=== PATIENT | male | born 1965 | race Caucasian/White ===

== ENCOUNTER 2022-09-20 14:17 | Outpatient (OUT) | payer BC, SELFPAY ==
--- NOTE | 2022-09-20 14:26 | ECG_ITS ---
The 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
--- NOTE | 2022-09-20 15:05 | PM.PRESUREVA ---
History of Present Illness History of Present Illness Chief complaint: hallux valgus Narrative: Patient presents for preadmission testing. The patient reports a long history of left foot pain. He states he had left ankle surgery after a fracture approximately ten years ago. He states his pain is worse with weightbearing and certain footwear. He is not currently taking any medications to help with his discomfort. He denies numbness, tingling, weakness, or any other complaints. Review of Systems ROS Narrative REVIEW OF SYSTEMS: Negative except as stated in HPI, ten or more systems reviewed. Constitutional: No fever , chills, weakness ENT: No sore throat or epistaxis Cardiovascular: No edema, chest pain, palpitations, or activity intolerance Respiratory: No shortness of breath, cough, or wheezing Gastrointestinal: No abdominal pain, constipation, diarrhea, or vomiting Genitourinary: No dysuria or hematuria Neurological: No numbness, tingling, weakness, or headache Psychiatric: No mood changes PFSH PFS Medical History (Updated 09/20/22 @ 15:11 by Roseanne Driscoll NP) Surgical History (Updated 09/20/22 @ 14:45 by Roseanne Driscoll NP) Family History (Updated 09/20/22 @ 14:48 by Roseanne Driscoll NP) Other Family history of myocardial infarction Social History (Updated 09/20/22 @ 14:44 by Roseanne Driscoll NP) Within the past year, how often did you have a drink containing alcohol: monthly or less Smoking status: Former smoker Non-prescribed substance use: denies use Previous occupational history: Receptionist Secretary Highest level of school completed/degree received: high school graduate Meds Home Medications and Allergies Allergies Allergy/AdvReac Type Severity Reaction Status Date / Time Penicillins Allergy itching Verified 09/20/22 14:43 Sulfa (Sulfonamide Allergy itching Verified 09/20/22 14:43 Antibiotics) Exam Narrative Exam Narrative: Constitutional: Awake, alert, comfortable, well-appearing, nontoxic, interactive, vital signs as charted Head: Normocephalic, atraumatic Neck: Supple, normal appearance, normal range of motion, no meningeal signs, no lymphadenopathy Respiratory: No respiratory distress, breath sounds clear Cardiovascular: Regular rate and rhythm, strong and regular heart tones Musculoskeletal: Normal gait, no swelling or edema, Obvious hallux valgus deformity left foot with tenderness overlying the 1st MTP joint, limited range of motion, good capillary refill, sensation intact Skin: No rashes or induration, no lesions, only visible skin inspected Neuro: No neurological deficits, normal sensation Psychiatric: Oriented ?3, normal affect Assessment and Plan Assessment and Plan (1) Hallux valgus (acquired), left foot: (2) Hallux rigidus, left foot: Plan Left 1st metatarsal phalangeal joint fusion with bone graft as needed scheduled with Dr. Boone 10/02/2022.
== END 2022-09-20 14:18 | disposition home or self-care (01) ==
LOC: PST 14:22
PROVIDERS: PCP Family Medicine; Visit Provider Podiatrist Foot & Ankle Surgery
DX: Z01.810 Encounter for preprocedural cardiovascular examination (principal); Z01.818 Encounter for other preprocedural examination; M20.12 Hallux valgus (acquired), left foot; M20.22 Hallux rigidus, left foot
CPT/HCPCS: 93005; G0463

== ENCOUNTER 2022-10-02 06:31 | Day surgery (SDC) | payer BC, SELFPAY ==
[2022-09-20 15:01] VITALS: BP 106/75; PULSE 93; RESP 20; TEMP 36.5; O2SAT 95; BMI 40.5
[2022-10-02] VITALS (13 sets, daily range): BP systolic 110–150; BP diastolic 67–102; PULSE 63–96; RESP 14–20; TEMP 36.7–37.1; O2SAT 92–96; BMI 40.5
--- NOTE | 2022-10-02 | XR_ITS ---
The [address] [address] Patient Name: VIVIENNE BINGHAM MRN: [id number] date: 1965 Sex: M Assigned Patient Location: [facility] Current Patient Location: [facility] Accession/Order Number: [id number] Exam Date: 10/02/2022 07:35 Report Date: 10/02/2022 11:19 At the request of: ELHAM KINNEY Procedure: XR foot LT 2V PROCEDURE: XR foot LT 2V HISTORY: left foot pain COMPARISON: None. FINDINGS: BONES:Multiple intraoperative spot fluoroscopic images demonstrates bunionectomy and mechanical fusion of the first metatarsophalangeal joint via dorsal plate and screws. Improved alignment. SOFT TISSUES:Expected intraoperative findings. EFFUSION:None visible. OTHER: Negative. XR/XR foot LT 2V IMPRESSION: 1. Left bunionectomy. 2. Mechanical fusion of the first metatarsophalangeal joint. Electronically authenticated by: VINCENT CHAPMAN Date: 10/02/2022 11:19
[2022-10-02 07:05] LABS: Glucometer 99 mg/dL (74-106)
[2022-10-02] MEDS: LACTATED RINGER'S SOLUTION 1,000 ML 50 ML IV (07:13)
[2022-10-02] MEDS: CLINDAMYCIN PHOSPHATE/D5W 900 MG/50 ML PIGGYBACK 100 MG IV (07:41)
[2022-10-02] MEDS: BUPIVACAINE HCL 0.25% PF 25 MG/10 ML VIAL INJ (08:02)
[2022-10-02] MEDS: LACTATED RINGER'S SOLUTION 1,000 ML 1000 ML IV ×2 (08:38→09:57)
--- NOTE | 2022-10-02 09:32 | PM.ORONB ---
Brief Operative Note Date of procedure: 10/02/22 Pre-op diagnosis: left hallux valgus, hallux rigidus Post-op diagnosis: same as pre-op Procedure: PROCEDURE(S) PERFORMED: 1. First metarsal phalangeal joint fusion 2. Application of short leg splint 3. Intraoperative fluoroscopy examination *All procedures were performed on the __LEFT__ foot INTRAOPERATIVE FINDINGS: PROCEDURE IN DETAIL: Patient was identified in pre op and consent was reviewed. Correct side and site were identified and marked. Pre-op antibiotics were started. Patient was brought to OR suite and place on table in a supine position. General anesthesia was administered. A tourniquet was applied. Operative extremity was prepped and draped in usual sterile fashion. Formal time-out was performed and the foot/ankle were exsanguinated and tourniquet inflated. Incision created over dorsal aspect of the 1st MPJ. Bleeders coagulated. EHL protected throughout the procedure. Capsulotomy performed and McGlammry elevator inserted into 1st MPJ. Guide Pin place in 1st metatarsal head. Conical reamers used on 1st metatarsal head to remove cartilage and subchondral bone. Guide pin removed. Conical reamers used on proximal phalanx in a similar manner. 2.0 mm drill used to on each side of the joint. The site was irrigated. 1 cc of sparc bone allograft was then packed into the fusion site. A stab incision was placed on the medial aspect of the hallux and blunt dissection down to the proximal phalanx base was performed. A guide wire was then used to pin the MPJ in a rectus position under fluoroscopic guidance. Position was checked both on the table and under fluoroscopy. A saw was used to contour the dorsal aspect of the 1st metatarsal and proximal phalanx to accommodate plate fixation. A 3.[address] was place over the fusion site and temporarily fixed. Then company pilot holes were drilled for locking 3.5 mm screws which were measured and placed according to the manufactor's standard directions. Again position was checked under fluoroscopy as well as on the table. Temporary fixation was removed and additional screws were placed. fluoroscopy revealed that the joint had distracted therefore the distal screws in the plate were removed and the joint was relocated and re-pinned. The distal two phalanx screws were then predrilled and placed accordingly while the proximal most hole was left open due to concern of it being placed into the joint. A 3.5 mm cannulated headed screw was inserted over the previously placed guide wire accordingly. Again position of the great toe and hardware placement were checked on the table and under fluoroscopy. a sagittal saw was used to remove the medial eminence of the 1st metatarsal then an additional guidewire was placed from the lateral base of the proximal phalanx across the joint and through a percutaneous incision medial to the distal 1st metatarsal. The wire was then retrograded to the lateral cortex of the phalanx. Then an additional 3.5 mm screw was placed from the medial aspect of the 1st metatarsal head spanning the joint for additional rotational stability. The surgical site was irrigated with copious amounts of sterile saline. The incision was then closed in layers. The tourniquet was deflated and a prompt hyperemic response was noted. A dry sterile dressing consisting of Xeroform on the incisions followed by 4 x 4 gauze, ABDs, and Kerlix were applied. Multiple layers of cast padding were then applied to ensure all bony prominences were well-padded. A plaster posterior splint was then applied which was held in place by Ernesto wraps. Capillary refill time to all digits was evaluated and had appropriate response. 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 he presents me relating to chronic and worsening left foot pain which is affecting activities of daily living as well as work. Radiographically and on clinical examination patient had moderate to severe bunion deformity with existing arthritis of the 1st metatarsal phalangeal joint. Due to failure to respond to nonsurgical care he wished to proceed with surgical treatment and I recommended 1st MPJ fusion. I outlined the potential risks and benefits of the procedure and consent was obtained.
--- NOTE | 2022-10-02 10:28 | XR_ITS ---
The [address] [address] Patient Name: VIVIENNE BINGHAM MRN: [id number] date: 1965 Sex: M Assigned Patient Location: [facility] Current Patient Location: [facility] Accession/Order Number: [id number] Exam Date: 10/02/2022 10:20 Report Date: 10/02/2022 11:18 At the request of: MADELYN AMATO Procedure: XR foot LT min 3V PROCEDURE: XR foot LT min 3V HISTORY: Postop XR PACU COMPARISON: XR foot left 10/02/2022 8:40 AM FINDINGS: BONES:Bunionectomy and mechanical fusion of the first metatarsophalangeal joint via dorsal plate and screws. SOFT TISSUES:Expected postoperative findings. Images were obtained through cast material. EFFUSION:None visible. OTHER: Negative. XR/XR foot LT min 3V IMPRESSION: 1. Mechanical fusion of the first metatarsophalangeal joint and bunionectomy. Electronically authenticated by: VINCENT CHAPMAN Date: 10/02/2022 11:18
[2022-10-02 10:57] LABS: Glucometer 136 mg/dL (74-106)
== END 2022-10-02 13:00 | disposition home or self-care (01) ==
PROVIDERS: PCP Family Medicine; Visit Provider Podiatrist Foot & Ankle Surgery
PROC: (CPT 28750; principal; 2022-10-02 07:30)
DX: M20.12 Hallux valgus (acquired), left foot (principal); M20.22 Hallux rigidus, left foot; Z87.81 Personal history of (healed) traumatic fracture; M19.172 Post-traumatic osteoarthritis, left ankle and foot; Z87.891 Personal history of nicotine dependence
CPT/HCPCS: 28750; 36415; 73620; 73630; 76000; 82948; C1713; J2704

== ENCOUNTER 2022-10-24 08:52 | Outpatient (OUT) | payer BC, SELFPAY ==
--- NOTE | 2022-10-24 | XR_ITS ---
The [address] [address] Patient Name: VIVIENNE BINGHAM MRN: [id number] date: 1965 Sex: M Assigned Patient Location: [facility] Current Patient Location: [facility] Accession/Order Number: [id number] Exam Date: 10/24/2022 09:09 Report Date: 10/24/2022 09:44 At the request of: ELHAM KINNEY Procedure: XR foot LT min 3V PROCEDURE: XR foot LT min 3V DATE: 10/24/2022 8:09 AM CDT COMPARISONS: 10/02/2022 CLINICAL INDICATION: LEFT FOOT PAIN FINDINGS: There is no evidence of fractures or other acute osseous abnormalities. There is fusion plate dorsal aspect of the first metatarsal phalangeal joint. The fusion plate is fixed by screws. There are also 2 oblique screws across the joint space. The hardware all appears to be intact when compared to previous exam. The osseous structures remain in good alignment, stable from previous exam. There is evidence of mild midfoot degenerative changes. Lateral view shows moderate tibiotalar degenerative change and slight subtalar degenerative change. There is evidence of postop changes of the distal tibia extending off the proximal aspect of the images. There is 5 mm area of sclerosis of the second mid phalanx likely of no clinical significance. This probably is a bone island. XR/XR foot LT min 3V IMPRESSION: Postop fusion first metatarsal phalangeal joint, stable in appearance from 10/02/2022 Electronically authenticated by: JED SIDDIQI Date: 10/24/2022 09:44
== END 2022-10-24 08:53 | disposition home or self-care (01) ==
LOC: RAD 08:52
PROVIDERS: PCP Family Medicine; Visit Provider Podiatrist Foot & Ankle Surgery
DX: M20.22 Hallux rigidus, left foot (principal)
CPT/HCPCS: 73630

== ENCOUNTER 2022-11-15 14:25 | Outpatient (OUT) | payer BC, SELFPAY ==
--- NOTE | 2022-11-15 | XR_ITS ---
The [address] [address] Patient Name: VIVIENNE BINGHAM MRN: [id number] date: 1965 Sex: M Assigned Patient Location: [facility] Current Patient Location: [facility] Accession/Order Number: [id number] Exam Date: 11/15/2022 10:50 Report Date: 11/15/2022 13:47 At the request of: ELHAM KINNEY Procedure: XR foot LT min 3V STUDY: XR foot LT min 3V, [id number] HISTORY: LEFT FOOT PAIN COMPARISON: Left foot x-rays 10/24/2022. FINDINGS: Left first metatarsophalangeal joint arthrodesis hardware is intact and similar alignment. No significant bony bridging across the first MTP joint space. Healed fracture of the left fifth proximal phalanx. Mild osteophytosis at the first tarsometatarsal joint. Partially visualized distal tibial fixation hardware. Moderate/severe osteoarthritis of the ankle mortise. XR/XR foot LT min 3V IMPRESSION: Similar appearance of the first MTP joint arthrodesis hardware. Electronically authenticated by: ELÍAS MULLER Date: 11/15/2022 13:47
== END 2022-11-15 14:26 | disposition home or self-care (01) ==
LOC: RAD 14:25
PROVIDERS: PCP Family Medicine; Visit Provider Podiatrist Foot & Ankle Surgery
DX: M20.12 Hallux valgus (acquired), left foot (principal)
CPT/HCPCS: 73630

== ENCOUNTER 2022-12-05 08:43 | Outpatient (OUT) | payer BC, SELFPAY ==
--- NOTE | 2022-12-05 | XR_ITS ---
The [address] [address] Patient Name: VIVIENNE BINGHAM MRN: [id number] date: 1965 Sex: M Assigned Patient Location: [facility] Current Patient Location: [facility] Accession/Order Number: [id number] Exam Date: 12/05/2022 08:58 Report Date: 12/05/2022 20:54 At the request of: ELHAM KINNEY Procedure: XR foot LT min 3V EXAM: XR foot LT min 3V HISTORY: LEFT FOOT PAIN COMPARISON: 11/15/2022 TECHNIQUE: Routine views of the XR foot LT min 3V FINDINGS/ XR/XR foot LT min 3V IMPRESSION: 1. No acute fractures. Normal mineralization. Chronic truncated appearance of the first distal phalanx tip. Chronic fracture deformity of the fifth proximal phalanx. Partially visualized plate and screw fixation of the distal tibia. 2. Unremarkable soft tissues. 3. First MTP arthrodesis. Maintained alignment without evidence for hardware complication. 4. Degenerative changes at the tibiotalar joint. Electronically authenticated by: MISHEL GRACIA Date: 12/05/2022 20:54
== END 2022-12-05 08:44 | disposition home or self-care (01) ==
LOC: RAD 08:43
PROVIDERS: PCP Family Medicine; Visit Provider Podiatrist Foot & Ankle Surgery
DX: M20.22 Hallux rigidus, left foot (principal); Z98.1 Arthrodesis status
CPT/HCPCS: 73630

== ENCOUNTER 2022-12-20 10:25 | Outpatient (OUT) | payer BC, SELFPAY ==
--- NOTE | 2022-12-20 | XR_ITS ---
The [address] [address] Patient Name: VIVIENNE BINGHAM MRN: [id number] date: 1965 Sex: M Assigned Patient Location: [facility] Current Patient Location: [facility] Accession/Order Number: [id number] Exam Date: 12/20/2022 10:36 Report Date: 12/20/2022 13:39 At the request of: ELHAM KINNEY Procedure: XR foot LT min 3V PROCEDURE: XR foot LT min 3V COMPARISON: 12/05/2022 HISTORY: LEFT FOOT PAIN FINDINGS: BONES:Stable first metatarsal phalangeal joint fusion with a dorsal plate and multiple screws. No acute fracture, dislocation or mechanical failure. Remote fixation of the distal tibia with a plate and screws, partially visualized. Stable degenerative changes with joint space narrowing and marginal osteophyte formation most significant at the tibiotalar joint. SOFT TISSUES:Negative. No visible soft tissue swelling. EFFUSION:None visible. OTHER: Negative. XR/XR foot LT min 3V IMPRESSION: Stable postsurgical and degenerative changes Electronically authenticated by: DAYSI SHIELDS Date: 12/20/2022 13:39
== END 2022-12-20 10:26 | disposition home or self-care (01) ==
LOC: RAD 10:25
PROVIDERS: PCP Family Medicine; Visit Provider Podiatrist Foot & Ankle Surgery
DX: M20.12 Hallux valgus (acquired), left foot (principal)
CPT/HCPCS: 73630

== ENCOUNTER 2022-12-22 08:44 | Outpatient (OUT) | payer BC, SELFPAY ==
--- NOTE | 2022-12-22 09:05 | CT_ITS ---
[address] [address] Patient Name: VIVIENNE BINGHAM MRN: [id number] date: 1965 Sex: M Assigned Patient Location: CT Current Patient Location: CT Accession/Order Number: [id number] Exam Date: 12/22/2022 09:20 Report Date: 12/22/2022 12:02 At the request of: ELHAM KINNEY Procedure: CT foot LT wo con EXAMINATION: CT foot LT wo con HISTORY: Hallux Rigidus COMPARISON: No relevant comparison available. TECHNIQUE: Multi-planar CT images were created without IV contrast. Dose reduction techniques were achieved by using automated exposure control and/or adjustment of mA and/or kV according to patient size and/or use of iterative reconstruction technique. FINDINGS: BONES: No acute fracture or dislocation. Moderate diffuse degenerative changes most significant in the hindfoot with joint space narrowing and marginal osteophyte formation. Remote fixation of the distal medial tibia with a plate and screws. Remote healed fracture of the distal fibula. Remote fusion of the first metatarsal-phalangeal joint with a dorsal plate and multiple screws. There is incomplete bony bridging across the fusion site SOFT TISSUES: Diffuse soft tissue swelling EFFUSION: None visible. OTHER: Negative. CT/CT foot LT wo con IMPRESSION: First metatarsal-phalangeal joint fusion with incomplete bony bridging Chronic degenerative, postsurgical and post traumatic changes Electronically authenticated by: DAYSI SHIELDS Date: 12/22/2022 12:02
== END 2022-12-22 08:45 | disposition home or self-care (01) ==
LOC: CT 08:44
PROVIDERS: Visit Provider Podiatrist Foot & Ankle Surgery
DX: M20.22 Hallux rigidus, left foot (principal)
CPT/HCPCS: 73700

== ENCOUNTER 2023-01-12 13:53 | Outpatient (OUT) | payer BC, SELFPAY ==
[2023-01-12 14:26] LABS: Basophils Percent Auto 0.5 % (0.2-2.0); Eosinophils Absolute Auto 0.1 10^3/uL (0.0-0.7); Hematocrit 44.6 % (42.0-54.0); Hemoglobin 15.9 g/dL (14.0-18.0); Immature Granulocytes Abs Auto 0.02 10^3/uL (0.00-0.03); Immature Granulocytes Pct Auto 0.3 % (0.0-0.5); Lymphocytes Absolute Auto 0.9 10^3/uL (1.2-3.8); Lymphocytes Percent Auto 14.6 % (20.5-60.0); Mean Corpuscular HGB Conc 35.7 g/dL (29.9-35.2); Mean Corpuscular Hemoglobin 33.4 pg (25.9-34.0); Mean Corpuscular Volume 93.7 fL (80.0-94.0); Mean Platelet Volume 10.1 fL (9.5-13.5); Monocytes Absolute Auto 0.4 10^3/uL (0.3-0.8); Monocytes Percent Auto 6.4 % (1.7-12.0); Neutrophils Absolute Auto 4.6 10^3/uL (1.4-6.5); Neutrophils Percent Auto 76.2 % (43.0-75.0); Platelet Count 166 10^3/uL (150-450); Red Blood Count 4.76 10^6/uL (4.70-6.10); Red Cell Distribution Width 12.5 % (11.0-15.0); White Blood Count 6.1 10^3/uL (4.0-11.0)
[2023-01-12 14:34] LABS: Estimated Average Glucose 97 mg/dL
[2023-01-12 14:53] LABS: Alanine Aminotransferase 30 U/L (16-63); Albumin Globulin Ratio 1.1; Albumin Level 4.2 g/dL (3.4-5.0); Alkaline Phosphatase 49 U/L (46-116); Anion Gap 15.4; Aspartate Amino Transferase 21 U/L (15-37); Bilirubin Total 0.8 mg/dL (0.2-1.0); Carbon Dioxide 27.5 mmol/L (21.0-32.0); Chloride 102 mmol/L (98-107); Chol HDL Ratio 4.2; Cholesterol 188 mg/dL (<=200); Estimated GFR (African America >60 (>=60); Estimated GFR (Non-African Ame >60 (>=60); Globulin 3.7 g/dL; Glucose 96 mg/dL (74-106); HDL Cholesterol 45 mg/dL (40-60); Potassium 3.9 mmol/L (3.5-5.1); Sodium 141 mmol/L (136-145); Total Protein 7.9 g/dL (6.4-8.2); Triglycerides 200 mg/dL (<=150)
== END 2023-01-12 13:54 | disposition home or self-care (01) ==
LOC: LAB 13:55
PROVIDERS: Visit Provider Internal Medicine
DX: Z00.00 Encounter for general adult medical examination without abnormal findings (principal)
CPT/HCPCS: 36415; 80053; 80061; 83036; 85025

== ENCOUNTER 2023-01-17 14:50 | Outpatient (OUT) | payer BC, SELFPAY ==
--- NOTE | 2023-01-17 | XR_ITS ---
The [address] [address] Patient Name: VIVIENNE BINGHAM MRN: [id number] date: 1965 Sex: M Assigned Patient Location: [facility] Current Patient Location: LAB Accession/Order Number: [id number] Exam Date: 01/17/2023 15:18 Report Date: 01/19/2023 15:54 At the request of: ELHAM KINNEY Procedure: XR foot LT min 3V EXAM: XR foot LT min 3V HISTORY: LEFT FOOT PAIN COMPARISON: Standing x-rays 12/20/2022 TECHNIQUE: 3 views standing FINDINGS: IMPRESSION: No visualized acute fracture, dislocation, subluxation or osseous lesion. Postoperative changes of the first metatarsophalangeal joint. No osseous incorporation of the postoperative first metatarsophalangeal joint. Postoperative changes of the distal tibia. The visualized internal hardware exhibits no gross acute abnormality. Dorsal bossing the midfoot. Electronically authenticated by: DAYSI VENTURA Date: 01/19/2023 15:54
== END 2023-01-17 14:51 | disposition home or self-care (01) ==
LOC: RAD 14:51
PROVIDERS: Visit Provider Podiatrist Foot & Ankle Surgery
DX: M20.22 Hallux rigidus, left foot (principal)
CPT/HCPCS: 73630

== ENCOUNTER 2023-02-27 15:10 | Outpatient (OUT) | payer BC, SELFPAY ==
--- NOTE | 2023-02-27 | XR_ITS ---
The [address] [address] Patient Name: VIVIENNE BINGHAM MRN: [id number] date: 1965 Sex: M Assigned Patient Location: [facility] Current Patient Location: [facility] Accession/Order Number: [id number] Exam Date: 02/27/2023 14:58 Report Date: 02/27/2023 15:44 At the request of: ELHAM KINNEY Procedure: XR foot LT min 3V PROCEDURE: XR foot LT min 3V COMPARISON: 01/17/2023 HISTORY: LEFT FOOT PAIN FINDINGS: BONES:No acute fracture or dislocation. Stable fusion first metatarsal-phalangeal joint with a dorsal plate and multiple screws. No mechanical failure. Remote fixation of the tibia with a plate and screws partially visualized. Moderate to severe degenerative changes of the midfoot and hindfoot with joint space narrowing and marginal osteophyte formation SOFT TISSUES:Negative. No visible soft tissue swelling. EFFUSION:None visible. OTHER: Negative. XR/XR foot LT min 3V IMPRESSION: Stable degenerative and postsurgical changes. No mechanical failure Electronically authenticated by: DAYSI SHIELDS Date: 02/27/2023 15:44
--- OUTSIDE RECORDS SUMMARY | 2023-02-27 15:24 | XMS_ITS | CCD ---
Author Name Unknown Address [address] [place] [address] Organization [facility] Care Team Providers Care Board Machine Set Up Operator Name Role Phone ELHAM KINNEY Admitting Unavailable ELHAM KINNEY Attending Unavailable ELHAM KINNEY Referring Unavailable SHAIKH OSBORN Primary Care Unavailable ELHAM IKNNEY Referring Unavailable SHAIKH OSBORN Primary Care Unavailable Allergies Allergy Classification Reported Allergen(s) Allergy Type Date of Onset Reaction(s) Facility (1 source) Penicillins; Translations: [PENICILLINS] Propensity to adverse reactions to drug (disorder) 2 [facility] (1 source) Sulfonamides (Antibiotic); Translations: [SULFA (SULFONAMIDE ANTIBIOTICS)] Propensity to adverse reactions to drug (disorder) 2 [facility] Results Test Name Value Interpretation Reference Range Facil ity Consenton 01-28-2020 Consent [id number] .00CD:127 [facility] Registrationon 01-28-2020 Registration [id number] .00CD:127 [facility] Encounters Encounter Date Encounter Type Care Provider Facility Start: 02-20-2023 ambulatory ELHAM KINNEY [facility] Start: 01-22-2023 End: 02-19-2023 ambulatory ELHAM KINNEY [facility] Start: 07-05-2022 ambulatory ELHAM KINNEY Faci lity:H1 Payers Date Payer Category Payer Unknown [id number] 1965 Unknown [id number] [id number] [id number] 1965 Unknown [id number] 2.16.84 [id number] 1965 Unknown [id number] 2.16.84 [id number] 1957 Unknown [id number] Summary Purpose Family History No Family History Records FoundNo Family History Records FoundNo Family History Records Found Advance Directives No Advanced Directives Records FoundNo Advanced Directives Records FoundNo Advanced Directives Records Found Additional Source Comments (unrecognized sect ion and content) No Status Records FoundNo Status Records FoundNo Status Records Found INFORMATION SOURCE (unrecogn ized section and content) DATE CREATED AUTHOR 01/29/2020 [facility] DATE CREATED AUTHOR AUTHOR'S ORGANIZ ATION 07/03/2022 [facility] DATE CREATED AUTHOR AUTHOR'S ORGANIZ ATION 02/26/2023 [facility] FOR RECORDS PERTAINING TO PATIENTS WHO ARE OR HAVE BEEN ENROLLED IN A CHEMICAL DEPENDENCY/SUBSTANCEABUSE PROGRAM, SOME INFORMATION MAY BE OMITTED. This clinical summary was aggregated from multiple sources. Caution should be exercised in using it in the provision of clinical care. This summary normalizes information from multiple sources, and as a consequence, information in this document may materially change the coding, format and clinical context of patient data. In addition, data may be omitted in some cases. CLINICAL DECISIONS SHOULD BE BASED ON THE PRIMARY CLINICAL RECORDS. [facility] [employer] [facility] provides no warranty or guarantee of the accuracy or completeness of information in this document.
== END 2023-02-27 15:11 | disposition home or self-care (01) ==
LOC: RAD 15:10
PROVIDERS: Visit Provider Podiatrist Foot & Ankle Surgery
DX: M20.22 Hallux rigidus, left foot (principal)
CPT/HCPCS: 73630

== ENCOUNTER 2023-03-14 14:52 | Outpatient (OUT) | payer BC, SELFPAY ==
--- NOTE | 2023-03-14 | XR_ITS ---
The [place] [id number] Patient Name: VIVIENNE BINGHAM MRN: [id number] date: 1965 Sex: M Assigned Patient Location: [facility] Current Patient Location: [facility] Accession/Order Number: [id number] Exam Date: 03/14/2023 14:57 Report Date: 03/14/2023 15:53 At the request of: ELHAM KINNEY Procedure: XR foot LT min 3V PROCEDURE: XR foot LT min 3V COMPARISON: 02/27/2023 HISTORY: LEFT FOOT PAIN FINDINGS: BONES:Stable fusion of the first metatarsal-phalangeal joint with a dorsal plate and screws. Remote internal fixation of the medial malleolus with a plate and screws. No acute fracture or dislocation or mechanical failure. Moderate to severe degenerative change of the tibiotalar joint, stable SOFT TISSUES:Negative. No visible soft tissue swelling. EFFUSION:None visible. OTHER: Negative. XR/XR foot LT min 3V IMPRESSION: Stable postsurgical and degenerative changes Electronically authenticated by: DAYSI SHIELDS Date: 03/14/2023 15:53
--- OUTSIDE RECORDS SUMMARY | 2023-03-14 15:03 | XMS_ITS | CCD ---
Author Name Unknown Address [address] [place] [address] [place] [address] Organization [facility] Care Team Providers Care Early Childhood Specialist Name Role Phone ELHAM KINNEY Admitting Unavailable ELHAM KINNEY Attending Unavailable SHAIKH OSBORN Attending Unavailable ELHAM KINNEY Referring Unavailable SHAIKH OSBORN Primary Care Unavailable ELHAM KINNEY Referring Unavailable SHAIKH OSBORN [...] Range Facil ity Consenton 01-28-2020 Consent [id number] .[id number]:127 [facility] Registrationon 01-28-2020 Registration [id number] .[id number]:127 [facility] Encounters Encounter Date Encounter Type Care Provider Facility Start: 03-01-2023 End: 03-01-2023 ambulatory SHAIKH IRENA Not Available Start: 02-20-2023 ambulatory ELHAM KINNEY [facility] Start: 01-22-2023 End: 02-19-2023 ambulatory ELHAM KINNEY [facility] Start: 07-05-2022 ambulatory ELHAM KINNEY Faci lity:H1 Payers Date Payer Category Payer Unknown [id number] 1965 Unknown [id number] [id number] [id number] 1965 Unknown [id number] 2.16.84 [id number] 1967 Unknown [id number] 2.16.84 [id number] 1967 Unknown [id number] 2.16.84 [id number] 1957 Unknown [id number] Summary Purpose Family History No Family History Records FoundNo Family History Records FoundNo Family History Records FoundNo Family History Records Found Advance Directives No Advanced Directives Records FoundNo Advanced Directives Records FoundNo Advanced Directives Records FoundNo Advanced Directives Records Found Additional Source Comments (unrecognized sect ion and content) No Status Records FoundNo Status Records FoundNo Status Records FoundNo Status Records Found INFORMATION SOURCE (unrecogn ized section and content) DATE CREATED AUTHOR 01/29/2020 [facility] DATE CREATED AUTHOR AUTHOR'S ORGANIZ ATION [facility] DATE CREATED AUTHOR AUTHOR'S ORGANIZ ATION 03/03/2023 [facility] [address] DATE CREATED AUTHOR AUTHOR'S ORGANIZ ATION 03/04/2023 [facility] FOR RECORDS PERTAINING TO PATIENTS WHO [...] BE BASED ON THE PRIMARY CLINICAL RECORDS. [facility] [employer] provides no warranty or guarantee of the accuracy or completeness of information in this document.
== END 2023-03-14 14:53 | disposition home or self-care (01) ==
LOC: RAD 14:52
PROVIDERS: Visit Provider Podiatrist Foot & Ankle Surgery
DX: M20.22 Hallux rigidus, left foot (principal)
CPT/HCPCS: 73630